=== PATIENT | female | born 1960 | race Caucasian/White ===

== ENCOUNTER 2016-04-03 09:06 | Emergency (ER) | payer BC, OTHER ==
[~2016-04-03] VITALS: Ht 174 cm; Wt 76.5 kg
[~2016-04-03 09:06] MED LIST: ENAL20TA81 PO; LORA-392 PO; LORTA5 PO; METO100T PO
[2016-04-03 09:07] VITALS: BP 133/105; PULSE 79; RESP 16; TEMP 97.7; O2SAT 95
--- NOTE | 2016-04-03 09:25 | PD ---
HPI Chief Complaint: Cold / Flu Symptoms Time Seen by Provider: 09:16 Travel History International Travel<30 days: No Contact w/Intl Traveler<30days: No Traveled to known affect area: No History of Present Illness HPI 55-year-old female complains of persistent cough and right-sided chest wall pain. Patient states that she started having coughing congestion 2 weeks ago. Patient started having sharp pain right-sided chest past week. Patient states the pain is worse with movement and deep breathing. Patient denies any fever chills. Patient denies any nausea vomiting diarrhea. Patient states the cough is persistent and nonproductive. Patient is a smoker. On a scale of 1-10 the pain is an 8. PFSH Past Medical History Arthritis: Yes (CERVICAL) Asthma: No Heart Rhythm Problems: No Cardiovascular Problems: Yes (HTN) High Cholesterol: No Chest Pain: No Congestive Heart Failure: No COPD: No Cerebrovascular Accident: No Diminished Hearing: No GERD: No Genitourinary: No Headaches: No Hepatitis: No Hiatal Hernia: No Hypertension: Yes Kidney Stones: No Musculoskeletal: Yes Neurologic: No Reproductive: No Respiratory: Yes Migraines: No Myocardial Infarction: No Renal Failure: No Seizures: No Sleep Apnea: No Ulcer: No ?: Not Past Surgical History Abdominal Surgery: No Appendectomy: No Cardiac Surgery: No Cholecystectomy: No Ear Surgery: No Endocrine Surgery: No Eye Surgery: No Genitourinary Surgery: No Gynecologic Surgery: No Oral Surgery: No Thoracic Surgery: No Other Surgery: Yes (CERVICAL PLATE) Social History Alcohol Use: No (social) Tobacco Use: No (1 ppd) Substance Use: No Allergies-Medications (Allergen,Severity, Reaction): Coded Allergies: Penicillin (Verified Allergy, Unknown, UNKNOWN, 04/03/16) Reported Meds & Prescriptions Reported Meds & Active Scripts Active Reported Hydroxyzine Pamoate 50 Mg Cap 50 Mg PO BID Lorazepam 0.5 Mg Tab 0.5 Mg PO TID Metoprolol Tartrate 100 Mg Tab 100 Mg PO BID Review of Systems General / Constitutional: No: Fever Eyes: No: Visual changes HENT: No: Headaches Cardiovascular: Positive: Chest Pain or Discomfort Respiratory: Positive: Cough, No: Shortness of Breath Gastrointestinal: No: Abdominal Pain Genitourinary: No: Dysuria Musculoskeletal: No: Pain Skin: No Rash Neurologic: No: Weakness Psychiatric: No: Depression Endocrine: No: Polydipsia Hematologic/Lymphatic: No: Easy Bruising Physical Exam Narrative GENERAL: Well-nourished, well-developed patient. SKIN: Warm and dry. HEAD: Normocephalic. EYES: No scleral icterus. No injection or drainage. NECK: Supple, trachea midline. No JVD or lymphadenopathy. CARDIOVASCULAR: Regular rate and rhythm without murmurs, gallops, or rubs. RESPIRATORY: Breath sounds equal bilaterally. No accessory muscle use. GASTROINTESTINAL: Abdomen soft, non-tender, nondistended. MUSCULOSKELETAL: No cyanosis, or edema. BACK: Nontender without obvious deformity. No CVA tenderness. Neurologic exam normal. Data Data Last Documented VS Vital Signs Date Time Temp Pulse Resp B/P Pulse Ox O2 Delivery O2 Flow Rate FiO2 04/03/16 09:07 97.7 79 16 133/105 95 Orders Chest, Single Ap (04/03/16 09:21) [facility] Medical Decision Making Medical Screen Exam Complete: Yes Emergency Medical Condition: Yes Interpretation(s) Chest x-ray shows no acute consolidation. Differential Diagnosis Differential diagnosis including bronchitis, pneumonia, pleurisy, pneumothorax. Narrative Course 55-year-old female with persistent cough and right-sided chest wall pain. Diagnosis Primary Impression: Bronchitis Additional Impression: Chest wall pain Patient Instructions: General Instructions Additional Instructions: Take medications as directed. Follow-up with personal physician. Return if worse. [id number] cough medicine as needed. Med/Other Pt SpecificInfo: Prescription(s) given Scripts Methocarbamol (Robaxin)750 Mg [id number] Mg PO QID #40 TAB Prov:Rey Londono MD 04/03/16 Meloxicam (Mobic)15 Mg Tab15 Mg PO DAILY #20 TAB Prov:Rey Londono MD 04/03/16 Azithromycin (Zithromax Z-Wesly)250 Mg [id number] Mg PO DIRECTED #1 DSPK 500 MG (2 tabs) day 1, then 1 tab days 2-5. Prov:Rey Londono MD 04/03/16 Disposition: 01 DISCHARGE HOME Condition: Stable Rey Londono MD Apr 03, 2016 09:25
[2016-04-03] MEDS ORDERED: LORA-373 PO (09:26)
[2016-04-03] MEDS ORDERED: HYDR50CA PO (09:26)
[2016-04-03] MEDS ORDERED: METO100T PO (09:26)
[2016-04-03] MEDS ORDERED: ZITHTAB PO (09:44)
[2016-04-03] MEDS ORDERED: MOBI15TA PO (09:44)
[2016-04-03] MEDS ORDERED: ROBA750T PO (09:44)
--- NOTE | 2016-04-03 09:51 | RADHPO ---
EXAM DATE/TIME: 04/03/2016 09:27 [facility] COMPARISON: No previous studies available for comparison. INDICATIONS : Cough and chest pain. MEDICAL HISTORY : None. SURGICAL HISTORY : None. ENCOUNTER: Initial ACUITY: 1 week PAIN SCORE: 9/10 LOCATION: Bilateral chest FINDINGS: A single view of the chest demonstrates the lungs to be symmetrically aerated without evidence of mas s, infiltrate or effusion. The cardiomediastinal contours are unremarkable. Osseous structures are intact. CONCLUSION: No acute disease. Sonu Linda MD on April 03, 2016 at 9:49 Board Certified Radiologist. This report was verified electronically.
== END 2016-04-03 09:57 | disposition home or self-care (01) ==
LOC: PHED 09:06
DX: J40 Bronchitis, not specified as acute or chronic (principal); R07.89 Other chest pain; I10 Essential (primary) hypertension; Z72.0 Tobacco use; Z87.39 Personal history of other diseases of the musculoskeletal system and connective tissue; Z87.09 Personal history of other diseases of the respiratory system
CPT/HCPCS: 71010; 99283

== ENCOUNTER 2017-03-05 09:46 | Emergency (ER) | payer BC ==
[~2017-03-05] VITALS: Ht 172.7 cm; Wt 84.0 kg
[~2017-03-05 09:46] MED LIST changes: -ENAL20TA81 PO; +HYDR50CA PO; -LORA-392 PO; +LORA0.5T PO; -LORTA5 PO; +MOBI15TA PO; +ROBA750T PO; +ZITHTAB PO
[2017-03-05 09:57] VITALS: BP 112/74; PULSE 87; RESP 16; TEMP 97.5; O2SAT 95
[2017-03-05] MEDS ORDERED: METO100T PO (10:23)
[2017-03-05] MEDS ORDERED: HYDR25TA5 PO (10:23)
[2017-03-05] MEDS ORDERED: CITA20TA4 PO (10:23)
--- NOTE | 2017-03-05 10:28 | PD ---
HPI Chief Complaint: Fall Time Seen by Provider: 10:16 Travel History International Travel<30 days: No Contact w/Intl Traveler<30days: No Traveled to known affect area: No History of Present Illness HPI This 56-year-old female is complaining of pain in her right shoulder. She says that 8 days ago she slipped on a wet floor and landed. She hit the right shoulder. She also hit her head but her head is not bothering her. She's been having pain in the right shoulder up to the neck. The pain seems to be getting worse. She has taken some Aleve without any relief. She does have a history of surgery on her neck. She says she had 4 collapsed disks and has a plate in her neck. The pain she is having is mostly in the back of the shoulder and extends up to the neck. She has not noted weakness of the arm. PFSH Past Medical History Arthritis: Yes (CERVICAL) Asthma: No Anxiety: Yes Heart Rhythm Problems: No Cardiovascular Problems: Yes (HTN) High Cholesterol: No Chest Pain: No Congestive Heart Failure: No COPD: No Cerebrovascular Accident: No Diminished Hearing: No Gastrointestinal Disorders: No GERD: No Genitourinary: No Headaches: No Hepatitis: No Hiatal Hernia: No Hypertension: Yes Kidney Stones: No Musculoskeletal: Yes Neurologic: No Reproductive: No Respiratory: Yes Migraines: No Myocardial Infarction: No Renal Failure: No Seizures: No Sleep Apnea: No Ulcer: No Past Surgical History Abdominal Surgery: No Appendectomy: No Cardiac Surgery: No Cholecystectomy: No Ear Surgery: No Endocrine Surgery: No Eye Surgery: No Genitourinary Surgery: No Gynecologic Surgery: No Neurologic Surgery: No Oral Surgery: No Thoracic Surgery: No Other Surgery: Yes (CERVICAL PLATE) Social History Alcohol Use: Yes (6 beers daily) Tobacco Use: No (1 ppd) Substance Use: Yes ( states pt takes "pills" and has a problem ) Allergies-Medications (Allergen,Severity, Reaction): Coded Allergies: penicillin G (Unverified Allergy, Unknown, UNKNOWN, 03/05/17) Reported Meds & Prescriptions Reported Meds & Active Scripts Active Mobic (Meloxicam) 15 Mg Tab 15 Mg PO DAILY Reported Hydrochlorothiazide 25 Mg Tab 25 Mg PO DAILY Citalopram (Citalopram Hydrobromide) 20 Mg Tab 20 Mg PO DAILY Metoprolol Tartrate 100 Mg Tab 150 Mg PO DAILY Lorazepam 0.5 Mg Tab 0.5 Mg PO TID Review of Systems General / Constitutional: No: Fever, Chills Eyes: No: Diploplia, Blurred Vision HENT: No: Headaches Cardiovascular: No: Chest Pain or Discomfort, Palpitations Respiratory: No: Cough Gastrointestinal: No: Vomiting, Diarrhea Genitourinary: No: Urgency Musculoskeletal: Positive: Myalgias, Pain Neurologic: No: Weakness Physical Exam Narrative GENERAL: Well-developed female SKIN: Focused skin assessment warm/dry. HEAD: Atraumatic. Normocephalic. EYES: Pupils equal and round. No scleral icterus. No injection or drainage. ENT: No nasal bleeding or discharge. Mucous membranes pink and moist. NECK: Trachea midline. No JVD. MUSCULOSKELETAL: No obvious deformities. No clubbing. No cyanosis. No edema. There is tenderness over the proximal humerus and the posterior aspect of the shoulder. She has pain with movement of the shoulder. There is no deformity area and also somewhat tender at the base of the neck. She has good radial pulse. Sensation of the hands is equal. Chemical Economist strength is equal. NEUROLOGICAL: Awake and alert. No obvious cranial nerve deficits. Motor grossly within normal limits. Normal speech. PSYCHIATRIC: Appropriate mood and affect; insight and judgment normal. Data Data Last Documented VS Vital Signs Date Time Temp Pulse Resp B/P (MAP) Pulse Ox O2 Delivery O2 Flow Rate FiO2 03/05/17 10:05 Room Air 03/05/17 09:57 97.5 87 16 112/74 (87) [address] Cerv Spine W/O Contrast (03/05/17 10:24) Shoulder, Complete (>2vws) (03/05/17 10:24) Oxycodone-Acetamin 5-325 Mg (Percocet (03/05/17 10:30) MDM Medical Decision Making Medical Screen Exam Complete: Yes Emergency Medical Condition: Yes Medical Record Reviewed: Yes Differential Diagnosis Differential includes contusion of the shoulder, posttraumatic bursitis, radiculopathy Narrative Course CT of the neck shows degenerative changes and surgical changes but no evidence of radiculopathy. X-ray of the shoulder shows some degenerative changes but no fracture. Patient has been treating this at home with Hollie without any response. I recommend she continue the Aleve but I will add some Percocet as she has not been sleeping due to the pain Diagnosis Primary Impression: Contusion of right shoulder Qualified Codes: S40.011A - Contusion of right shoulder, initial encounter Scripts Oxycodone-Acetaminophen (Percocet) 7.5-325 mg Tab 1 TAB PO Q6H Y for PAIN, #20 TAB 0 Refills Prov: Enrique Romero MD 03/05/17 Disposition: 01 DISCHARGE HOME Condition: Stable Enrique Romero MD Mar 05, 2017 10:28
[2017-03-05] MEDS ORDERED: oxyCODONE/ACETAMINOPHEN 5 MG/325 MG TAB PO ONE (10:30)
--- NOTE | 2017-03-05 11:22 | RADRPT ---
EXAM DATE/TIME: 03/05/2017 10:38 [facility] COMPARISON: No previous studies available for comparison. INDICATIONS : Right shoulder pain post slip & fall. MEDICAL HISTORY : Hypertension. Arthritis. SURGICAL HISTORY : Fusion, cervical. ENCOUNTER: Initial ACUITY: 1 week PAIN SCORE: 10/10 LOCATION: Right shoulder FINDINGS: There is no evidence of acute fracture. Bony mineralization is normal. There is mild osteoarthritis i nvolving the acromioclavicular joint. The glenohumeral joint is intact. CONCLUSION: 1. There is no evidence of acute fracture. 1. Anthony Shell MD on March 05, 2017 at 11:19 Board Certified Radiologist. This report was verified electronically.
--- NOTE | 2017-03-05 11:27 | RADRPT ---
EXAM DATE/TIME: 03/05/2017 10:42 [facility] COMPARISON: No previous studies available for comparison. INDICATIONS : Fall. Right sided neck pain. RADIATION DOSE: 25.99 CTDIvol (mGy) MEDICAL HISTORY : Hypertension. SURGICAL HISTORY : Cervical plate. ENCOUNTER: Initial ACUITY: 1 week PAIN SCALE: 5/10 LOCATION: Right neck TECHNIQUE: Volumetric scanning of the cervical spine was performed. Multiplanar reconstructions in the sagittal, coronal and oblique axial planes were performed. Using automated exposure control and adjustment o f the mA and/or kV according to patient size, radiation dose was kept as low as reasonably achievable to obtain optimal diagnostic quality images. DICOM format image data is available electronically f or review and comparison. FINDINGS: VERTEBRAE: Normal vertebral body height. Status post fusion at C6-C7. ALIGNMENT: No evidence of subluxation. C2-C3: The bony spinal canal is normal in size. No evidence of disc bulge or herniation. The neural forami na are bilaterally patent. C3-C4: Mild facet disease on the right without encroachment C4-C5: The bony spinal canal is normal in size. No evidence of disc bulge or herniation. The neural forami na are bilaterally patent. C5-C6: Thgl-do-kaktmzuq uncinate ridging with mild spinal stenosis. Neural foramen are adequate. C6-C7: Fused with patent neural foramen and no spinal stenosis C7-T1: The bony spinal canal is normal in size. No evidence of disc bulge or herniation. The neural forami na are bilaterally patent. CONCLUSION: Degenerative changes above the fusion at C5-C6 mild spinal stenosis. This is only slightly worse on the right side. Vic Cisneros MD FACR on March 05, 2017 at 11:23 Board Certified Radiologist. This report was verified electronically.
[2017-03-05 11:35] VITALS: RESP 18
[2017-03-05] MEDS ORDERED: PERC7.5T13 PO (12:03)
[2017-03-05 12:15] VITALS: BP 101/74
== END 2017-03-05 12:25 | disposition home or self-care (01) ==
LOC: PHED 09:46
DX: S40.011A Contusion of right shoulder, initial encounter (principal); W01.0XXA Fall on same level from slipping, tripping and stumbling without subsequent striking against object, initial encounter
CPT/HCPCS: 72125; 73030; 99284

== ENCOUNTER 2017-07-14 20:08 | Inpatient (IN) | payer BC ==
[~2017-07-14] VITALS: Ht 175.3 cm; Wt 84.0 kg
[~2017-07-14 20:08] MED LIST changes: +CITA20TA4 PO; +HYDR25TA5 PO; -HYDR50CA PO; +PERC7.5T13 PO; -ROBA750T PO; -ZITHTAB PO
[2017-07-14 20:48] VITALS: BP 112/71; PULSE 110; RESP 18; TEMP 99.7
--- NOTE | 2017-07-14 22:55 | PD ---
HPI Chief Complaint: GI Complaint Time Seen by Provider: 22:45 Travel History International Travel<30 days: No Contact w/Intl Traveler<30days: No Traveled to known affect area: No History of Present Illness HPI 57-year-old female complains of pain in the left chest and upper abdomen. She reports a cough that started 4 days ago. It has been gradually worsening. Now she has difficulty breathing due to pain. Any coughing causes increasing pain in the left chest and abdomen as well. The patient smokes about 10 cigarettes per day. She reports additionally hematuria today for the very first time. She follows with Dr. Gonzales. [facility] Past Medical History Arthritis: Yes (CERVICAL) Asthma: No Anxiety: Yes Heart Rhythm Problems: No Cardiovascular Problems: Yes (HTN) High Cholesterol: No Chest Pain: No Congestive Heart Failure: No COPD: No Cerebrovascular Accident: No Diminished Hearing: No Gastrointestinal Disorders: No GERD: No Genitourinary: No Headaches: No Hepatitis: No Hiatal Hernia: No Hypertension: Yes Kidney Stones: No Musculoskeletal: Yes Neurologic: No Reproductive: No Respiratory: Yes (pneumonia) Migraines: No Myocardial Infarction: No Renal Failure: No Seizures: No Sleep Apnea: No Ulcer: No ?: Not Past Surgical History Abdominal Surgery: No Appendectomy: No Cardiac Surgery: No Cholecystectomy: No Ear Surgery: No Endocrine Surgery: No Eye Surgery: No Genitourinary Surgery: No Gynecologic Surgery: No Neurologic Surgery: No Oral Surgery: No Thoracic Surgery: No Other Surgery: Yes (CERVICAL PLATE) Social History Alcohol Use: Yes (occ) Tobacco Use: Yes (1/2 ppd) Substance Use: Yes ( states pt takes "pills" and has a problem ) Allergies-Medications (Allergen,Severity, Reaction): Coded Allergies: penicillin G (Unverified Allergy, Unknown, UNKNOWN, 07/14/17) Reported Meds & Prescriptions Reported Meds & Active Scripts Active Reported Diazepam 10 Mg Tab 10 Mg PO HS PRN Gabapentin 300 Mg Cap 300 Mg PO BID Seroquel (Quetiapine Fumarate) 50 Mg Tab 50 Mg PO DAILY Doxepin (Doxepin HCl) 100 Mg Cap 100 Mg PO HS Hydrochlorothiazide 25 Mg Tab 25 Mg PO DAILY Citalopram (Citalopram Hydrobromide) 20 Mg Tab 20 Mg PO DAILY Metoprolol Tartrate 100 Mg Tab 150 Mg PO DAILY Lorazepam 0.5 Mg Tab 0.5 Mg PO TID Review of Systems Except as stated in HPI: all other systems reviewed are Neg General / Constitutional: No: Fever Physical Exam Narrative GENERAL: Pleasant 57-year-old female mild distress secondary to pain and/or distress Vital Signs Date Time Temp Pulse Resp B/P (MAP) Pulse Ox O2 Delivery O2 Flow Rate FiO2 07/14/17 20:48 99.7 110 18 112/71 (85) SKIN: Warm and dry. HEAD: Atraumatic. Normocephalic. EYES: Pupils equal and round. No scleral icterus. No injection or drainage. ENT: No nasal bleeding or discharge. Mucous membranes pink and moist. NECK: Trachea midline. No JVD. CARDIOVASCULAR: Tachycardia. Regular rhythm. RESPIRATORY: Minimal tachypnea is present. The breathing is somewhat shallow. GASTROINTESTINAL: Abdomen soft, non-tender, nondistended. Hepatic and splenic margins not palpable. MUSCULOSKELETAL: Extremities without clubbing, cyanosis, or edema. No obvious deformities. NEUROLOGICAL: Awake and alert. No obvious cranial nerve deficits. Motor grossly within normal limits. Five out of 5 muscle strength in the arms and legs. Normal speech. PSYCHIATRIC: Appropriate mood and affect; insight and judgment normal. Data Data Last Documented VS Vital Signs Date Time Temp Pulse Resp B/P (MAP) Pulse Ox O2 Delivery O2 Flow Rate FiO2 07/15/17 00:45 115 16 141/79 (99) 94 Nasal Cannula 4.00 07/14/17 20:48 99.7 Orders Orders Comprehensive Metabolic Panel (07/14/17 22:51) B-Type Natriuretic Peptide (07/14/17 22:51) D-Dimer (07/14/17 22:51) Act Partial Throm Time (Ptt) (07/14/17 22:51) Prothrombin Time / Inr (Pt) (07/14/17 22:51) Ckmb (Isoenzyme) Profile (07/14/17 22:51) Troponin I (07/14/17 22:51) Urinalysis - C+S If Indicated (07/14/17 22:51) Influenzae A/B Antigen (07/14/17 22:51) Blood Culture (07/14/17 22:51) Iv Access Insert/Monitor (07/14/17 22:51) Electrocardiogram (07/14/17 22:51) Ecg Monitoring (07/14/17 22:51) Oximetry (07/14/17 22:51) Oxygen Administration (07/14/17 22:51) Chest, Single Ap (07/14/17 22:51) Sodium Chloride 0.9% Flush (Ns Flush) (07/14/17 23:00) Albuterol Neb (Albuterol Neb) (07/14/17 23:00) Morphine Inj (Morphine Inj) (07/14/17 23:00) Complete Blood Count With Diff (07/14/17 22:51) Ceftriaxone Inj (Rocephin Inj) (07/14/17 23:45) Azithromycin Inj (Zithromax Inj) (07/14/17 23:45) CKMB (07/14/17 23:23) CKMB% (07/14/17 23:23) Sodium Chlor 0.9% 1000 Ml Inj (Ns 1000 M (07/15/17 00:30) Sodium Chlor 0.9% 1000 Ml Inj (Ns 1000 M (07/15/17 00:30) Ct Pulmonary Angiogram (07/15/17 00:24) Levofloxacin 750 Mg Premix Inj (Levaquin (07/15/17 23:00) Albuterol-Ipratropium Neb (Duoneb Neb) (07/15/17 01:00) Admit To Inpatient (07/15/17 ) Vital Signs (Adult) Q4H (07/15/17 00:56) Activity Oob With Assistance (07/15/17 00:56) Subway Repair Supervisor / Telemetry .CONTINUOUS (07/15/17 00:56) Intake + Output SHIRELNE.QSHIFT (07/15/17 00:56) Sodium Chlor 0.9% 1000 Ml Inj (Ns 1000 M (07/15/17 00:56) Sodium Chloride 0.9% Flush (Ns Flush) (07/15/17 01:00) Sodium Chloride 0.9% Flush (Ns Flush) (07/15/17 09:00) Ondansetron Inj (Zofran Inj) (07/15/17 01:00) Comprehensive Metabolic Panel (07/16/17 06:00) Complete Blood Count With Diff (07/16/17 06:00) Creatine Kinase (Cpk) (07/15/17 06:00) Creatine Kinase (Cpk) (07/15/17 12:00) Scd Bilateral/Knee High SHIRLENE.BID (07/15/17 00:56) Isidro Bilateral/Knee High SHIRLENE.QSHIFT (07/15/17 00:59) Acetaminophen (Tylenol) (07/15/17 01:00) Acetamin-Hydrocod 325-5 Mg (Marshall 5-325 (07/15/17 01:00) Morphine Inj (Morphine Inj) (07/15/17 01:00) Docusate Sodium-Senna (Nadine-Colace) (07/15/17 09:00) Magnesium Hydroxide Liq (Milk Of Magnesi (07/15/17 01:00) Sennosides (Senokot) (07/15/17 01:00) Bisacodyl Supp (Dulcolax Supp) (07/15/17 01:00) Lactulose Liq (Lactulose Liq) (07/15/17 01:00) Inpatient Certification (07/15/17 ) Citalopram (Celexa) (07/15/17 09:00) Quetiapine (Seroquel) (07/15/17 09:00) Admit Order (Ed Use Only) (07/15/17 ) Subway Repair Supervisor / Telemetry SHIRLENE.Q8H (07/15/17 01:01) Vital Signs (Adult) Q4H (07/15/17 01:01) Diet Heart Healthy (07/15/17 Breakfast) Activity Bed Rest (07/15/17 01:01) Diazepam (Valium) (07/15/17 01:30) Labs Laboratory Tests Test 07/14/17 23:23 White Blood Count 15.6 TH/MM3 Red Blood Count 3.56 MIL/MM3 Hemoglobin 11.2 GM/DL Hematocrit 33.3 % Mean Corpuscular Volume 93.4 FL Mean Corpuscular Hemoglobin 31.5 PG Mean Corpuscular Hemoglobin Concent 33.7 % Red Cell Distribution Width 13.0 % Platelet Count 205 TH/MM3 Mean Platelet Volume 6.9 FL Neutrophils (%) (Auto) 82.4 % Lymphocytes (%) (Auto) 7.8 % Monocytes (%) (Auto) 9.6 % Eosinophils (%) (Auto) 0.1 % Basophils (%) (Auto) 0.1 % Neutrophils # (Auto) 12.9 TH/MM3 Lymphocytes # (Auto) 1.2 TH/MM3 Monocytes # (Auto) 1.5 TH/MM3 Eosinophils # (Auto) 0.0 TH/MM3 Basophils # (Auto) 0.0 TH/MM3 CBC Comment AUTO DIFF Differential Total Cells Counted 100 Neutrophils % (Manual) 67 % Band Neutrophils % 14 % Lymphocytes % 11 % Monocytes % 8 % Neutrophils # (Manual) 12.6 TH/MM3 Differential Comment FINAL DIFF MANUAL Platelet Estimate NORMAL Platelet Morphology Comment NORMAL Red Cell Morphology Comment NORMAL Prothrombin Time 9.6 SEC Prothromb Time International Ratio 0.9 RATIO Activated Partial Thromboplast Time 35.6 SEC D-Dimer Quantitative (PE/DVT) 8.25 MG/L FEU Urine Collection Type CLEAN CATCH Urine Color ORANGE Urine Turbidity SL CLOUDY Urine pH 5.5 Urine Specific Corea GREATER/EQUAL 1.030 Urine Protein 300 OR GREATER mg/dL Urine Glucose (UA) 100 mg/dL Urine Ketones TRACE mg/dL Urine Occult Blood LARGE Urine Nitrite POS Urine Bilirubin NEG Urine Urobilinogen 4.0 MG/DL Urine Leukocyte Esterase NEG Urine RBC 4-9 /hpf Urine WBC 3-5 /hpf Urine Squamous Epithelial Cells > 8 /hpf Urine Amorphous Sediment MOD Urine Bacteria FEW /hpf Urine Hyaline Casts 6-9 /lpf Urine Mucus MOD /lpf Urine Yeast (Budding) FEW Microscopic Urinalysis Comment CULT NOT INDICATED Blood Urea Nitrogen 13 MG/DL Creatinine 0.76 MG/DL Random Glucose 114 MG/DL Total Protein 7.8 GM/DL Albumin 2.9 GM/DL Calcium Level 9.0 MG/DL Alkaline Phosphatase 102 U/L Aspartate Amino Transf (AST/SGOT) 55 U/L Alanine Aminotransferase (ALT/SGPT) 35 U/L Total Bilirubin 0.7 MG/DL Sodium Level 134 MEQ/L Potassium Level 3.9 MEQ/L Chloride Level 97 MEQ/L Carbon Dioxide Level 29.1 MEQ/L Anion Gap 8 MEQ/L Estimat Glomerular Filtration Rate 78 ML/MIN Total Creatine Kinase 1937 U/L Creatine Kinase MB 2.3 NG/ML Creatine Kinase MB % 0.1 % Troponin I LESS THAN 0.02 NG/ML B-Type Natriuretic Peptide 42 PG/ML MDM Medical Decision Making Medical Screen Exam Complete: Yes Emergency Medical Condition: Yes Medical Record Reviewed: Yes Differential Diagnosis NSTEMI, unstable angina, coronary vasospasm, PE, PTX, aortic dissection, pericarditis, myocarditis, endocarditis, PNA, esophageal disease, aneurysm, musculoskeletal etiologies, anxiety, cocaine/sympathomimetic abuse Narrative Course CBC & BMP Diagram 07/14/17 23:23 Total Protein 7.8, Albumin 2.9 L, Calcium Level 9.0, Alkaline Phosphatase 102, Aspartate Amino Transf (AST/SGOT) 55 H, Alanine Aminotransferase (ALT/SGPT) 35, Total Bilirubin 0.7 Total creatine kinase 1,937 Tn < 0.02 BNP 42 Band neutrophils% 14 [place] Ayala started HR 110, O2 sat 98% on 2LNC at 1252am admission to med/surg floor with telemetry for sepsis d/w Dr Gleason for [facility] Critical Care Narrative Aggregate critical car time 35 minutes included in the critical care time. My time did not include minutes spent treating any other patients simultaneously or on activities that did not directly contribute to the patient's treatment. The services I provided to this patient were to treat and/or prevent clinically significant deterioration that could result in: Septic shock I provided critical care services requiring my management, as noted below: Chart data review, documentation time, medication orders and management, vital sign assessments/reviewing monitor data, ordering and reviewing lab tests, ordering and interpreting/reviewing x-rays and diagnostic studies, care of the patient and discussion of the patient with the admitting physicians. Diagnosis Primary Impression: PNA (pneumonia) Qualified Codes: J18.9 - Pneumonia, unspecified organism Additional Impressions: Sepsis Qualified Codes: A41.9 - Sepsis, unspecified organism UTI (urinary tract infection) Qualified Codes: N39.0 - Urinary tract infection, site not specified; R31.9 - Hematuria, unspecified Admitting Information Admitting Physician Requests: Admit Edi Alexander MD Jul 14, 2017 22:55
[2017-07-14] MEDS ORDERED: RESP: ALBUTEROL 2.5 MG/3 ML NEB (SCH) INH ONE (23:00)
[2017-07-14] MEDS ORDERED: MORPHINE SULFATE 8 MG/ML INJ IV PUSH ONE (23:00)
[2017-07-14] MEDS ORDERED: SODIUM CHLORIDE 0.9% FLUSH 10 ML FLUSH IVF PRN (23:00)
[2017-07-14] MEDS ORDERED: SERO50TA PO (23:12)
[2017-07-14] MEDS ORDERED: GABA300C5 PO (23:12)
[2017-07-14] MEDS ORDERED: DOXE100C4 PO (23:12)
[2017-07-14] MEDS ORDERED: DIAZ10TA PO (23:12)
--- NOTE | 2017-07-14 23:19 | RADRPT ---
EXAM DATE/TIME: 07/14/2017 23:03 [facility] COMPARISON: CHEST SINGLE AP, April 03, 2016, 9:27. INDICATIONS : Patient states pain all over for several days. MEDICAL HISTORY : Hypertension. SURGICAL HISTORY : Fusion, cervical. ENCOUNTER: Initial ACUITY: 3 days PAIN SCORE: 8/10 LOCATION: Bilateral upper chest FINDINGS: Patchy infiltrates seen in both bases and also in the right upper lobe. No pleural effusion seen. No pneumothorax. Heart size stable, within normal limits. CONCLUSION: Patchy bilateral pneumonia as above. Sonu Diaz MD on July 14, 2017 at 23:17 Board Certified Radiologist. This report was verified electronically.
[2017-07-14 23:21] VITALS: BP 113/72; PULSE 109; RESP 20; O2SAT 98
[2017-07-14 23:37] LABS: AUTOMATED NEUTROPHIL # 12.9 TH/MM3 (1.8-7.7); BASOPHIL % 0.1 % (0.0-2.0); EOSINOPHIL % 0.1 % (0.0-4.0); HEMATOCRIT 33.3 % (35.0-46.0); HEMOGLOBIN 11.2 GM/DL (11.6-15.3); LYMPH % 7.8 % (9.0-44.0); LYMPHOCYTE # 1.2 TH/MM3 (1.0-4.8); MEAN CELL VOLUME 93.4 FL (80.0-100.0); MEAN CORPUSCULAR HEMOGLOBIN 31.5 PG (27.0-34.0); MEAN CORPUSCULAR HGB CONC 33.7 % (32.0-36.0); MEAN PLATELET VOLUME 6.9 FL (7.0-11.0); MONO % 9.6 % (0.0-8.0); MONOCYTE # 1.5 TH/MM3 (0-0.9); NEUT % 82.4 % (16.0-70.0); PLATELET COUNT 205 TH/MM3 (150-450); RED BLOOD COUNT 3.56 MIL/MM3 (4.00-5.30); WHITE BLOOD COUNT 15.6 TH/MM3 (4.0-11.0)
[2017-07-14 23:43] LABS: BLOOD, URINE LARGE (NEG); GLUCOSE,URINE 100 mg/dL (NEG); KETONE, URINE TRACE mg/dL (NEG); NITRITE,URINE POS (NEG); PH, URINE 5.5 (5.0-8.5); URINE LEUKOCYTE ESTERASE NEG (NEG)
[2017-07-14] MEDS ORDERED: cefTRIAXone INJ 1,000 MG in SODIUM CHLORIDE 0.9% INJ 100 ML IV ONE (23:45)
[2017-07-14] MEDS ORDERED: AZITHROMYCIN INJ 500 MG in SODIUM CHLOR 0.9% 250 ML INJ 250 ML IV ONE (23:45)
[2017-07-14 23:47] LABS: CHLORIDE 97 MEQ/L (98-107); SODIUM (NA) 134 MEQ/L (136-145)
[2017-07-14 23:48] LABS: BILIRUBIN, URINE NEG (NEG); URINE COLOR ORANGE (YELLW/STRAW)
[2017-07-14 23:49] LABS: MUCUS URINE MOD /lpf (OCC)
[2017-07-14 23:50] LABS: ALBUMIN 2.9 GM/DL (3.4-5.0); BICARBONATE 29.1 MEQ/L (21.0-32.0); BLOOD UREA NITROGEN 13 MG/DL (7-18); GLUCOSE,RANDOM 114 MG/DL (74-106); SQUAMOUS EPITHELIAL CELL URINE > 8 /hpf (0-5)
[2017-07-14 23:51] LABS: AMORPHOUS SEDIMENT, URINE MOD; BACTERIA, URINE FEW /hpf
[2017-07-14 23:53] LABS: ALT (GPT) 35 U/L (10-53)
[2017-07-14 23:54] LABS: AST (GOT) 55 U/L (15-37); CREATININE 0.76 MG/DL (0.50-1.00); GLOMERULAR FILTRATION RATE 78 ML/MIN (>89)
[2017-07-14 23:55] LABS: TOTAL BILIRUBIN ADULT 0.7 MG/DL (0.2-1.0); TOTAL PROTEIN 7.8 GM/DL (6.4-8.2)
[2017-07-14 23:56] LABS: ALKALINE PHOSPHATASE 102 U/L (45-117)
[2017-07-14 23:58] LABS: TROPONIN I LESS THAN 0.02 NG/ML (0.02-0.05)
[2017-07-15] VITALS (21 sets, daily range): BP systolic 86–141; BP diastolic 60–83; PULSE 68–116; RESP 14–27; TEMP 96.6–98.3; O2SAT 87–100
[2017-07-15 00:06] LABS: BANDS 14 % (0-6); LYMPHOCYTES 11 % (9-44); MONOCYTES 8 % (0-8); NEUTROPHIL # MANUAL DIFF 12.6 TH/MM3 (1.8-7.7); POLYS (SEG NEUTROPHILS) 67 % (16-70)
[2017-07-15] MEDS ORDERED: SODIUM CHLOR 0.9% 1000 ML INJ 1,000 ML IV ONE ×2 (00:30)
--- NOTE | 2017-07-15 00:51 | RADRPT ---
EXAM DATE/TIME: 07/15/2017 00:17 [facility] COMPARISON: CHEST SINGLE AP, July 14, 2017, 23:03. INDICATIONS : Left chest pain. IV CONTRAST: 75 cc Omnipaque 350 (iohexol) IV RADIATION DOSE: 16.52 CTDIvol (mGy) MEDICAL HISTORY : Hypertension. SURGICAL HISTORY : None. ENCOUNTER: Initial ACUITY: 4 - 6 days PAIN SCALE: 9/10 LOCATION: Left chest TECHNIQUE: Volumetric scanning of the chest was performed using a pulmonary embolism protocol MIP images were re constructed. Using automated exposure control and adjustment of the mA and/or kV according to patien t size, radiation dose was kept as low as reasonably achievable to obtain optimal diagnostic quality images. DICOM format image data is available electronically for review and comparison. Follow-up recommendations for detected pulmonary nodules are based at a minimum on nodule size and pa tient risk factors according to Fleischner Society Guidelines. FINDINGS: There is no pulmonary embolus. There is bilateral pneumonia, on the left involving the mid-upper lobe and the base of the lower lobe . Pneumonia on the right is mostly in the upper lobe and to a lesser extent medial segment of the rig ht middle lobe. There is a tiny left pleural effusion. Normal heart size. There are scattered mediastinal lymph nodes that measure up to 11 mm in greatest s hort axis dimension, nonspecific but presumably reactive. Liver appears fatty infiltrated. CONCLUSION: 1. No pulmonary embolus. 2. Bilateral pneumonia and tiny left pleural effusion. 3. Upper limits of normal mediastinal lymph nodes. Sonu Diaz MD on July 15, 2017 at 0:46 Board Certified Radiologist. This report was verified electronically.
[2017-07-15] MEDS ORDERED: SENNOSIDES 8.6 MG TAB PO PRN (01:00)
[2017-07-15] MEDS ORDERED: ACETAMINOPHEN 325 MG TAB PO PRN (01:00)
[2017-07-15] MEDS ORDERED: ONDANSETRON HCL 4 MG/2 ML VIAL IVP PRN (01:00)
[2017-07-15] MEDS ORDERED: BISACODYL 10 MG SUPP RECTAL PRN (01:00)
[2017-07-15] MEDS ORDERED: LACTULOSE SYRUP 20 GM/30 ML CUP PO PRN (01:00)
[2017-07-15] MEDS ORDERED: MAGNESIUM HYDROXIDE SUSP 30 ML CUP PO PRN (01:00)
[2017-07-15 01:05] LABS: INTERNATIONAL NORMALIZED RATIO 0.9 RATIO; PROTHROMBIN TIME - PATIENT 9.6 SEC (9.8-11.6)
[2017-07-15 01:12] LABS: D-DIMER 8.25 MG/L FEU (0.00-0.50)
[2017-07-15] MEDS ORDERED: IOHEXOL 350 MG/ML 10 ML VIAL (for RAD DIAG) IVCONTRAST ONE (01:14)
[2017-07-15] MEDS: MORPHINE SULFATE 2 MG/ML SYRINGE IV PUSH PRN ×2 (02:47→06:00)
[2017-07-15] MEDS: SODIUM CHLOR 0.9% 1000 ML INJ 1,000 ML IV SCH ×4 (03:17→21:50)
[2017-07-15] MEDS: SODIUM CHLORIDE 0.9% FLUSH 10 ML FLUSH IV FLUSH SCH ×2 (08:02→20:48)
[2017-07-15] MEDS: CITALOPRAM HYDROBROMIDE 20 MG TAB PO SCH (08:03)
[2017-07-15] MEDS: DOCUSATE SODIUM 50 MG/SENNA 8.6 MG TAB PO SCH ×2 (08:03→20:48)
[2017-07-15] MEDS: ACETAMINOPHEN/HYDROcodone 325 MG/5 MG TAB PO PRN ×3 (08:04→22:04)
[2017-07-15] MEDS: QUEtiapine FUMARATE 25 MG TAB PO SCH (08:04)
--- NOTE | 2017-07-15 10:12 | EKG ---
Date Performed: 07/14/2017 Time Performed: 23:35:59 PTAGE: 57 years EKG: SINUS TACHYCARDIA POSSIBLE LEFT ATRIAL ENLARGEMENT NONSPECIFIC T-WAVE ABNORMALITY ABNORMAL RHYTHM ECG NO PREVIOUS TRACING DOCTOR: Anthony Stacy Interpretating Date/Time 07/15/2017 10:11:31
--- NOTE | 2017-07-15 10:40 | HHI.HP ---
HPI Service [facility] Primary Care Physician Pricilla Gonzales MD Admission Diagnosis PNA; Sepsis; UTI Diagnoses: Chief Complaint: Headache Travel History International Travel<30 Days: No Contact w/Intl Traveler <30 Da: No Traveled to Known Affected Are: No Sepsis Criteria SIRS Criteria (2 or more): Heart rate over 90, WBC > 79239, < 4000 or > 10% bands Sepsis Criteria (SIRS+source): Infect source susp/known History of Present Illness This patient is a 57-year-old female with a history of tobacco dependency without a history of chronic obstructive disease per her report and who comes in with increased headache and shortness of breath for the last several days. She reports she was recently in a hospital however no reports are verified. She has had difficulty breathing and productive cough and does came to the hospital for further evaluation. In the emergency room she was tachycardic and had elevated white cell count. X-ray on my review does show patchy infiltrates bilaterally and a CT of the chest is consistent with bilateral pneumonia. Patient been admitted to the hospital for acute bilateral pneumonia with evidence of respiratory failure. She has been hypoxemic without home oxygen reported. She has been on 3-4 L here. She has some improvement nebulizers and antibiotics. She feels a tightness in her chest is improved and her headache is improved as well. Patient been admitted to the hospital for further evaluation and treatment of the above problems. Review of Systems Constitutional: COMPLAINS OF: Fever, Chills, DENIES: Diaphoretic episodes, Fatigue, Weight gain, Weight loss, Dizziness, Change in appetite, Night Sweats Endocrine: DENIES: Abnorml menstrual pattern, Heat/cold intolerance, Polydipsia , Polyuria, Polyphagia Eyes: DENIES: Blurred vision, Diplopia, Eye inflammation, Eye pain, Vision loss , Photosensitivity, Double Vision Ears, nose, mouth, throat: DENIES: Tinnitus, Hearing loss, Vertigo, Nasal discharge, Oral lesions, Throat pain, Hoarseness, Ear Pain, Running Nose, Epistaxis, Sinus Pain, Toothache, Odynophagia Respiratory: COMPLAINS OF: Cough, Sputum production, Shortness of breath, DENIES: Apneas, Snoring, Wheezing, Hemoptysis Cardiovascular: DENIES: Chest pain, Palpitations, Syncope, Dyspnea on Exertion , PND, Lower Extremity Edema, Orthopnea, Claudication Gastrointestinal: DENIES: Abdominal pain, Black stools, Bloody stools, Constipation, Diarrhea, Nausea, Vomiting, Difficulty Swallowing, Anorexia Genitourinary: DENIES: Abnormal vaginal bleeding, Dysmenorrhea, Dyspareunia, Sexual dysfunction, Urinary frequency, Urinary incontinence, Urgency, Hematuria , Dysuria, Nocturia, Vaginal discharge Musculoskeletal: DENIES: Joint pain, Muscle aches, Stiffness, Joint Swelling, Back pain, Neck pain Integumentary: DENIES: Abnormal pigmentation, Pruritus, Rash, Nail changes, Breast masses, Breast skin changes, Nipple discharge Hematologic/lymphatic: DENIES: Bruising, Lymphadenopathy Immunologic/allergic: DENIES: Eczema, Urticaria Neurologic: COMPLAINS OF: Headache, DENIES: Abnormal gait, Localized weakness, Paresthesias, Seizures, Speech Problems, Tremor, Poor Balance Psychiatric: COMPLAINS OF: Anxiety, Depression, DENIES: Confusion, Mood changes , Hallucinations, Agitation, Suicidal Ideation, Homicidal Ideation, Delusions Except as stated in HPI: all other systems reviewed are Neg Past Family Social History Past Medical History Hypertension Anxiety/depression Past Surgical History Cervical neck surgery Reported Medications Reviewed in the EMR, patient's med list appears different from the one listed in the medical record Patient denies taking metoprolol or hydrochlorothiazide and denies taking Lorazepam or diazepam Allergies: Coded Allergies: penicillin G (Unverified Allergy, Unknown, UNKNOWN, 07/14/17) Active Ordered Medications Reviewed in the EMR Family History Mother and father from old age in their 80s, mother also had a heart attack Social History Patient smokes half a pack a day for several decades, alcohol occasionally, lives with her Physical Exam Vital Signs Vital Signs Date Time Temp Pulse Resp B/P (MAP) Pulse Ox O2 Delivery O2 Flow Rate FiO2 07/15/17 08:00 98.3 116 14 102/60 (74) 90 07/15/17 04:00 98.1 68 17 117/83 (94) 96 07/15/17 03:09 98.0 90 17 118/80 (93) 94 07/15/17 01:39 115 18 115/78 (90) 96 Nasal Cannula 4.00 07/15/17 00:45 115 16 141/79 (99) 94 Nasal Cannula 4.00 07/14/17 23:44 17 07/14/17 23:21 109 20 113/72 (86) 98 Nasal Cannula 4.00 07/14/17 23:13 Nasal Cannula 4.00 07/14/17 23:13 Nasal Cannula 4.00 07/14/17 20:48 99.7 110 18 112/71 (85) Physical Exam GENERAL: This is a well-nourished, sleepy but able to answer questions although appears somewhat confused SKIN: No rashes, ecchymoses or lesions. Cool and dry. HEAD: Atraumatic. Normocephalic. No temporal or scalp tenderness. EYES: Pupils equal round and reactive. Extraocular motions intact. No scleral icterus. No injection or drainage. ENT: Nose without bleeding, purulent drainage or septal hematoma. Throat without erythema, tonsillar hypertrophy or exudate. Uvula midline. Airway patent. NECK: Trachea midline. No JVD or lymphadenopathy. Supple, nontender, no meningeal signs. CARDIOVASCULAR: Regular rate and rhythm without murmurs, gallops, or rubs. RESPIRATORY: Decreased air sounds bilaterally without wheezes appreciated GASTROINTESTINAL: Abdomen soft, non-tender, nondistended. No hepato-splenomegaly , or palpable masses. No guarding. MUSCULOSKELETAL: Extremities without clubbing, cyanosis, or edema. No joint tenderness, effusion, or edema noted. No calf tenderness. Negative Homans sign bilaterally. NEUROLOGICAL: Awake and alert. Cranial nerves II through XII intact. Motor and sensory grossly within normal limits. Five out of 5 muscle strength in all muscle groups. Normal speech. Laboratory Laboratory Tests Test 07/14/17 23:23 07/15/17 05:30 White Blood Count 15.6 Red Blood Count 3.56 Hemoglobin 11.2 Hematocrit 33.3 Mean Corpuscular Volume 93.4 Mean Corpuscular Hemoglobin 31.5 Mean Corpuscular Hemoglobin Concent 33.7 Red Cell Distribution Width 13.0 Platelet Count 205 Mean Platelet Volume 6.9 Neutrophils (%) (Auto) 82.4 Lymphocytes (%) (Auto) 7.8 Monocytes (%) (Auto) 9.6 Eosinophils (%) (Auto) 0.1 Basophils (%) (Auto) 0.1 Neutrophils # (Auto) 12.9 Lymphocytes # (Auto) 1.2 Monocytes # (Auto) 1.5 Eosinophils # (Auto) 0.0 Basophils # (Auto) 0.0 CBC Comment AUTO DIFF Differential Total Cells Counted 100 Neutrophils % (Manual) 67 Band Neutrophils % 14 Lymphocytes % 11 Monocytes % 8 Neutrophils # (Manual) 12.6 Differential Comment FINAL DIFF MANUAL Platelet Estimate NORMAL Platelet Morphology Comment NORMAL Red Cell Morphology Comment NORMAL Prothrombin Time 9.6 Prothromb Time International Ratio 0.9 Activated Partial Thromboplast Time 35.6 D-Dimer Quantitative (PE/DVT) 8.25 Urine Collection Type CLEAN CATCH Urine Color ORANGE Urine Turbidity SL CLOUDY Urine pH 5.5 Urine Specific [place] GREATER/EQUAL 1.030 Urine Protein 300 OR GREATER Urine Glucose (UA) 100 Urine Ketones TRACE Urine Occult Blood LARGE Urine Nitrite POS Urine Bilirubin NEG Urine Urobilinogen 4.0 Urine Leukocyte Esterase NEG Urine RBC 4-9 Urine WBC 3-5 Urine Squamous Epithelial Cells > 8 Urine Amorphous Sediment MOD Urine Bacteria FEW Urine Hyaline Casts 6-9 Urine Mucus MOD Urine Yeast (Budding) FEW Microscopic Urinalysis Comment CULT NOT INDICATED Blood Urea Nitrogen 13 Creatinine 0.76 Random Glucose 114 Total Protein 7.8 Albumin 2.9 Calcium Level 9.0 Alkaline Phosphatase 102 Aspartate Amino Transf (AST/SGOT) 55 Alanine Aminotransferase (ALT/SGPT) 35 Total Bilirubin 0.7 Sodium Level 134 Potassium Level 3.9 Chloride Level 97 Carbon Dioxide Level 29.1 Anion Gap 8 Estimat Glomerular Filtration Rate 78 Total Creatine Kinase 7 6 Creatine Kinase MB 2.3 3.6 Creatine Kinase MB % 0.1 0.2 Troponin I LESS THAN 0.02 B-Type Natriuretic Peptide 42 Date/Time Source Procedure Growth Status 07/14/17 23:23 Blood Peripheral Aerobic Blood Culture Pending Received 07/14/17 23:23 Blood Peripheral Anaerobic Blood Culture Pending Received 07/14/17 23:30 Nasal Aspirate Influenza Types A,B Antigen (SHANTA) - Final NEGATIVE FOR FLU A AND B ANTIGEN.... Complete Result Diagram: 07/14/17232207/14/17232[address] Angiography 07/15/17 0024 Signed Impressions: Service Date/Time: Saturday, July 15, 2017 00:17 - CONCLUSION: 1. No pulmonary embolus. 2. Bilateral pneumonia and tiny left pleural effusion. 3. Upper limits of normal mediastinal lymph nodes. Sonu Diaz MD Chest X-Ray 07/14/17 [id number] Signed Impressions: Service Date/Time: Friday, July 14, 2017 23:03 - CONCLUSION: Patchy bilateral pneumonia as above. Sonu Diaz MD Septic Shock Reassessment Septic shock perfusion: reassessment completed Caprini VTE Risk Assessment Caprini VTE Risk Assessment: Mod/High Risk (score >= 2) Caprini Risk Assessment Model Point Value = 1 Point Value = 2 Point Value = 3 Point Value = 5 Age 41-60 Minor surgery BMI > 25 kg/m2 Swollen legs Varicose veins or History of unexplained or recurrent spontaneous Oral contraceptives or hormone replacement Sepsis (< 1 month) Serious lung disease, including pneumonia (< 1 month) Abnormal pulmonary function Acute myocardial infarction Congestive heart failure (< 1 month) History of inflammatory bowel disease Medical patient at bed rest Age 61-74 Arthroscopic surgery Major open surgery (> 45 min) Laparoscopic surgery (> 45 min) Malignancy Confined to bed (> 72 hours) Immobilizing plaster cast Central venous access Age >= 75 History of VTE Family history of VTE Factor V Leiden Prothrombin [id number] Lupus anticoagulant Anticardiolipin antibodies Elevated serum homocysteine Heparin-induced thrombocytopenia Other congenital or acquired thrombophilia Stroke (< 1 month) Elective arthroplasty Hip, pelvis, or leg fracture Acute spinal cord injury (< 1 month) Prophylaxis Regimen Total Risk Factor Score Risk Level Prophylaxis Regimen 0-1 Low Early ambulation 2 Moderate Order ONE of the following: *Sequential Compression Device (SCD) *Heparin 5000 units SQ BID 3-4 Higher Order ONE of the following medications: *Heparin 5000 units SQ TID *Enoxaparin/Lovenox 40 mg SQ daily (WT < 150 kg, CrCl > 30 mL/min) *Enoxaparin/Lovenox 30 mg SQ daily (WT < 150 kg, CrCl > 10-29 mL/min) *Enoxaparin/Lovenox 30 mg SQ BID (WT < 150 kg, CrCl > 30 mL/min) AND/OR *Sequential Compression Device (SCD) 5 or more Highest Order ONE of the following medications: *Heparin 5000 units SQ TID (Preferred with Epidurals) *Enoxaparin/Lovenox 40 mg SQ daily (WT < 150 kg, CrCl > 30 mL/min) *Enoxaparin/Lovenox 30 mg SQ daily (WT < 150 kg, CrCl > 10-29 mL/min) *Enoxaparin/Lovenox 30 mg SQ BID (WT < 150 kg, CrCl > 30 mL/min) AND *Sequential Compression Device (SCD) Assessment and Plan Problem List: (1) Encephalopathy ICD Code: G93.40 - Encephalopathy, unspecified Plan: Etiology unclear rule out metabolic versus toxic Workup in progress follow-up ammonia level, blood gas Avoid sedatives (2) PNA (pneumonia) ICD Code: J18.9 - Pneumonia, unspecified organism Status: Acute Plan: Continue with empiric Levaquin, follow-up micro Patient with acute sepsis (elevated heart rate, elevated white cell count Pneumonia) (3) Sepsis ICD Code: A41.9 - Sepsis, unspecified organism Status: Acute Plan: Likely due to pneumonia Elevated white cell count and hypoxemia and tachycardia (4) Rhabdomyolysis ICD Code: M62.82 - Rhabdomyolysis Plan: Continue with trending CPK levels, IV fluids and watch renal function (5) SOB (shortness of breath) ICD Code: R06.02 - Shortness of breath Plan: Continue with nebulizers as needed Follow-up blood gas Rule out chronic disease process Patient also with acute pneumonia will continue IV antibiotics we will add a short course of steroids wean off o2 as tolerated Physician Certification 2 Midnight Certification Type: Admission for Inpatient Services Order for Inpatient Services The services are ordered in accordance with Medicare regulations or non- Medicare payer requirements, as applicable. In the case of services not specified as inpatient-only, they are appropriately provided as inpatient services in accordance with the 2-midnight benchmark. Estimated LOS (days): 3 3 days is the estimated time the patient will need to remain in the hospital, assuming treatment plan goals are met and no additional complications. Post-Hospital Plan: Home Problem Qualifiers (1) PNA (pneumonia): Qualified Codes: J18.9 - Pneumonia, unspecified organism (2) Sepsis: Qualified Codes: A41.9 - Sepsis, unspecified organism Lisa Parker MD Jul 15, 2017 10:40
[2017-07-15] MEDS ORDERED: methylPREDNISolone SOD SUCC 125 MG/2 ML VIAL IV PUSH ONE (11:00)
[2017-07-15] MEDS: LEVOFLOXACIN 750 MG TAB PO SCH (11:53)
[2017-07-15] MEDS: NICOTINE 14 MG/24 HR PATCH T-DERMAL SCH (11:54)
[2017-07-15] MEDS ORDERED: QUET-86 PO (14:54)
[2017-07-15] MEDS ORDERED: HYDR-3133 PO (14:54)
[2017-07-15] MEDS ORDERED: HYDR1CAP30 PO (14:56)
[2017-07-15] MEDS ORDERED: LORazepam 1 MG TAB PO PRN (15:15)
[2017-07-15] MEDS ORDERED: LORazepam 2 MG/ML VIAL IV PUSH PRN ×4 (15:15)
[2017-07-15] MEDS ORDERED: LORazepam 2 MG TAB PO PRN (15:15)
[2017-07-15] MEDS ORDERED: FLUMAZENIL 0.5 MG/5 ML VIAL IV PUSH PRN (15:15)
[2017-07-15] MEDS: methylPREDNISolone SOD SUCC 40 MG/1 ML VIAL IV PUSH SCH ×2 (18:05→22:04)
[2017-07-15] MEDS: DIAZEPAM 5 MG TAB PO PRN (21:02)
[2017-07-15] MEDS ORDERED: LEVOFLOXACIN 750 MG PREMIX INJ 150 ML IV SCH (23:00)
[2017-07-16] VITALS (36 sets, daily range): BP systolic 84–141; BP diastolic 55–84; PULSE 60–80; RESP 10–34; TEMP 97.4–98.2; O2SAT 88–100
[2017-07-16] MEDS: SODIUM CHLOR 0.9% 1000 ML INJ 1,000 ML IV SCH ×3 (04:00→17:44)
[2017-07-16] MEDS: ACETAMINOPHEN/HYDROcodone 325 MG/5 MG TAB PO PRN ×4 (04:53→21:55)
[2017-07-16] MEDS: methylPREDNISolone SOD SUCC 40 MG/1 ML VIAL IV PUSH SCH ×4 (04:54→23:11)
[2017-07-16] MEDS: SODIUM CHLORIDE 0.9% FLUSH 10 ML FLUSH IV FLUSH PRN (04:54)
[2017-07-16 05:16] LABS: BASOPHIL % 0.1 % (0.0-2.0); EOSINOPHIL % 0.1 % (0.0-4.0); HEMOGLOBIN 10.1 GM/DL (11.6-15.3); LYMPH % 6.5 % (9.0-44.0); LYMPHOCYTE # 0.6 TH/MM3 (1.0-4.8); MEAN CELL VOLUME 94.5 FL (80.0-100.0); MEAN CORPUSCULAR HEMOGLOBIN 30.6 PG (27.0-34.0); MEAN CORPUSCULAR HGB CONC 32.4 % (32.0-36.0); MEAN PLATELET VOLUME 7.6 FL (7.0-11.0); MONO % 1.7 % (0.0-8.0); MONOCYTE # 0.2 TH/MM3 (0-0.9); NEUT % 91.6 % (16.0-70.0); PLATELET COUNT 187 TH/MM3 (150-450); RED BLOOD COUNT 3.28 MIL/MM3 (4.00-5.30); RED CELL DISTRIBUTION WIDTH 13.2 % (11.6-17.2); WHITE BLOOD COUNT 9.8 TH/MM3 (4.0-11.0)
[2017-07-16 06:22] LABS: ALBUMIN 2.2 GM/DL (3.4-5.0); ALKALINE PHOSPHATASE 103 U/L (45-117); ALT (GPT) 56 U/L (10-53); AST (GOT) 67 U/L (15-37); BLOOD UREA NITROGEN 14 MG/DL (7-18); CALCIUM 8.2 MG/DL (8.5-10.1); CHLORIDE 106 MEQ/L (98-107); CREATININE 0.45 MG/DL (0.50-1.00); GLOMERULAR FILTRATION RATE 143 ML/MIN (>89); GLUCOSE,RANDOM 132 MG/DL (74-106); SODIUM (NA) 141 MEQ/L (136-145); TOTAL BILIRUBIN ADULT 0.3 MG/DL (0.2-1.0); TOTAL PROTEIN 6.8 GM/DL (6.4-8.2)
[2017-07-16] MEDS: RESP: ALBUTEROL 2.5 MG/IPRATROPIUM 0.5 MG NEB (PRN) NEB ×4 (08:34→20:09)
[2017-07-16] MEDS: REMOVE OLD PATCH T-DERMAL SCH (09:00)
[2017-07-16] MEDS: LEVOFLOXACIN 750 MG TAB PO SCH (09:04)
[2017-07-16] MEDS: NICOTINE 14 MG/24 HR PATCH T-DERMAL SCH (09:04)
[2017-07-16] MEDS: SODIUM CHLORIDE 0.9% FLUSH 10 ML FLUSH IV FLUSH SCH ×2 (09:05→20:28)
[2017-07-16] MEDS: CITALOPRAM HYDROBROMIDE 20 MG TAB PO SCH (09:05)
[2017-07-16] MEDS: QUEtiapine FUMARATE 25 MG TAB PO SCH (09:05)
[2017-07-16] MEDS: DOCUSATE SODIUM 50 MG/SENNA 8.6 MG TAB PO SCH ×2 (09:05→20:28)
[2017-07-16] MEDS: guaiFENesin E.R. 600 MG TAB PO SCH ×2 (11:46→20:28)
--- NOTE | 2017-07-16 13:17 | HHI.PR ---
Subjective Remarks Patient seen and evaluated today in follow-up for metabolic encephalopathy and for respiratory failure which is hypercapnic and also due to pneumonia and hypoxemia. Patient's improved greatly on high flow nasal cannula which we will wean as tolerated. She has quite a bit of congestion and is requesting something to help her cough up her phlegm. Objective Vitals Vital Signs Date Time Temp Pulse Resp B/P (MAP) Pulse Ox O2 Delivery O2 Flow Rate FiO2 07/16/17 11:00 72 21 99/67 (78) 94 07/16/17 10:23 76 34 100/69 (79) 92 07/16/17 10:00 78 07/16/17 10:00 74 14 84/55 (65) 88 07/16/17 09:00 76 11 99/66 (77) 95 07/16/17 08:35 93 High Flow Nasal Cannula 30.00 35 07/16/17 08:00 70 18 91/69 (76) 92 07/16/17 08:00 70 07/16/17 07:00 97 Nasal Cannula 30.00 35 07/16/17 07:00 98.2 70 18 91/69 (76) 92 07/16/17 06:07 66 11 93/65 (74) 92 07/16/17 06:00 73 07/16/17 05:07 74 10 114/76 (89) 92 07/16/17 04:07 97.4 60 15 91/66 (74) 94 07/16/17 04:00 92 Nasal Cannula 30.00 35 07/16/17 04:00 75 07/16/17 03:07 66 22 92/63 (73) 91 07/16/17 02:07 74 15 94/67 (76) 92 07/16/17 02:00 78 07/16/17 01:15 95 High Flow Nasal Cannula 30.00 32 07/16/17 01:15 92 Nasal Cannula 30.00 35 07/16/17 01:07 72 24 97/69 (78) 93 07/16/17 00:09 66 18 92/59 (70) 94 07/16/17 00:07 64 14 87/62 (70) 93 07/16/17 00:00 97.8 64 11 92/59 (70) 94 07/16/17 00:00 62 07/15/17 23:07 68 14 93/67 (76) 95 07/15/17 22:10 94 Bi-Pap 35 07/15/17 22:10 100 35 07/15/17 22:07 70 24 96/72 (80) 94 07/15/17 22:00 68 07/15/17 21:09 74 27 93/62 (72) 95 07/15/17 21:07 76 20 86/62 (70) 95 07/15/17 20:07 97.7 78 18 94/66 (75) 90 07/15/17 20:00 92 High Flow Nasal Cannula 30.00 32 07/15/17 20:00 92 Nasal Cannula 30.00 35 07/15/17 20:00 78 07/15/17 19:07 82 24 105/73 (84) 92 07/15/17 18:00 88 07/15/17 17:00 76 17 98/70 (79) 90 07/15/17 17:00 76 07/15/17 16:00 84 07/15/17 16:00 96.6 80 15 108/72 (84) 89 07/15/17 15:00 84 14 100/73 (82) 89 07/15/17 14:30 95 High Flow Nasal Cannula 30.00 32 07/15/17 14:16 96.6 87 18 101/68 (79) 95 I/O 07/15/17 07/15/17 07/15/17 07/16/17 07/16/17 07/16/17 07:00 15:00 23:00 07:00 15:00 23:00 Intake Total 2621 ml 236 ml 1250 ml 1380 ml 220 ml Output Total 400 ml 400 ml Balance 2621 ml 236 ml 850 ml 1380 ml -180 ml Intake Oral 236 ml 250 ml 220 ml IV Total 2621 ml 1000 ml 1380 ml Output Urine Total 400 ml 400 ml # Voids 2 1 2 # Bowel Movements 0 0 Result Diagram: 07/16/17 0418 07/16/17 [address] Angiography 07/15/17 0024 Signed Impressions: Service Date/Time: Saturday, July 15, 2017 00:17 - CONCLUSION: 1. No pulmonary embolus. 2. Bilateral pneumonia and tiny left pleural effusion. 3. Upper limits of normal mediastinal lymph nodes. Sonu Diaz MD Chest X-Ray 07/14/17 [id number] Signed Impressions: Service Date/Time: Friday, July 14, 2017 23:03 - CONCLUSION: Patchy bilateral pneumonia as above. Sonu Diaz MD Objective Remarks GENERAL: This is a well-nourished, well-developed patient, in no apparent distress. CARDIOVASCULAR: Regular rate and rhythm without murmurs, gallops, or rubs. RESPIRATORY: Bilateral rhonchi with improved airflow GASTROINTESTINAL: Abdomen soft, non-tender, nondistended. Normal active bowel sounds MUSCULOSKELETAL: Extremities without clubbing, cyanosis, or edema. NEURO: Alert & Oriented x4 to person, place, time, situation. Moves all ext x4 A/P Problem List: (1) Encephalopathy ICD Code: G93.40 - Encephalopathy, unspecified Plan: Likely secondary to hypercapnia/metabolic encephalopathy Greatly improved with treatment of pulmonary processes (2) PNA (pneumonia) ICD Code: J18.9 - Pneumonia, unspecified organism Status: Acute Plan: Continue with empiric Levaquin, follow-up micro Patient with acute sepsis (elevated heart rate, elevated white cell count Pneumonia) (3) Sepsis ICD Code: A41.9 - Sepsis, unspecified organism Status: Acute Plan: Likely due to pneumonia Elevated white cell count and hypoxemia and tachycardia (4) Rhabdomyolysis ICD Code: M62.82 - Rhabdomyolysis Plan: Continue with trending CPK levels, IV fluids and watch renal function (5) SOB (shortness of breath) ICD Code: R06.02 - Shortness of breath Plan: Continue with nebulizers as needed Acidosis improved Rule out chronic disease process Patient also with acute pneumonia will continue IV antibiotics we will continue short course of steroids wean off o2 as tolerated Problem Qualifiers (1) PNA (pneumonia): Qualified Codes: J18.9 - Pneumonia, unspecified organism (2) Sepsis: Qualified Codes: A41.9 - Sepsis, unspecified organism Lisa Parker MD Jul 16, 2017 13:17
[2017-07-16] MEDS: ENOXAPARIN SODIUM 40 MG/0.4 ML SYRINGE SQ SCH (15:12)
[2017-07-16] MEDS: DIAZEPAM 5 MG TAB PO PRN (20:28)
[2017-07-17] VITALS (30 sets, daily range): BP systolic 120–152; BP diastolic 74–99; PULSE 58–94; RESP 11–28; TEMP 97.9–98.8; O2SAT 89–98
[2017-07-17] MEDS: SODIUM CHLOR 0.9% 1000 ML INJ 1,000 ML IV SCH ×2 (00:42→10:11)
[2017-07-17] MEDS: ACETAMINOPHEN/HYDROcodone 325 MG/5 MG TAB PO PRN ×5 (02:15→20:48)
[2017-07-17] MEDS: methylPREDNISolone SOD SUCC 40 MG/1 ML VIAL IV PUSH SCH ×4 (05:49→22:46)
[2017-07-17] MEDS: DOCUSATE SODIUM 50 MG/SENNA 8.6 MG TAB PO SCH ×2 (09:00→20:47)
[2017-07-17] MEDS: guaiFENesin E.R. 600 MG TAB PO SCH ×2 (10:09→20:48)
[2017-07-17] MEDS: QUEtiapine FUMARATE 25 MG TAB PO SCH (10:09)
[2017-07-17] MEDS: CITALOPRAM HYDROBROMIDE 20 MG TAB PO SCH (10:10)
[2017-07-17] MEDS: NICOTINE 14 MG/24 HR PATCH T-DERMAL SCH (10:10)
[2017-07-17] MEDS: LEVOFLOXACIN 750 MG TAB PO SCH (10:10)
[2017-07-17] MEDS: REMOVE OLD PATCH T-DERMAL SCH (10:10)
[2017-07-17] MEDS: SODIUM CHLORIDE 0.9% FLUSH 10 ML FLUSH IV FLUSH SCH ×2 (10:11→20:48)
[2017-07-17] MEDS ORDERED: PRED20 PO (12:14)
[2017-07-17] MEDS ORDERED: LEVA750T9 PO (12:14)
[2017-07-17] MEDS ORDERED: NEBULIZER1 MI1 (12:14)
[2017-07-17] MEDS ORDERED: FUROSEMIDE 40 MG/4 ML VIAL IV PUSH ONE (12:15)
--- NOTE | 2017-07-17 12:19 | HHI.PR ---
Subjective Remarks Patient seen and evaluated in follow-up for respiratory failure with pneumonia and significant hypoxemia Objective Vitals Vital Signs Date Time Temp Pulse Resp B/P (MAP) Pulse Ox O2 Delivery O2 Flow Rate FiO2 07/17/17 11:01 62 12 126/82 (97) 93 07/17/17 10:01 94 28 146/85 (105) 91 07/17/17 10:00 94 Nasal Cannula 2.00 07/17/17 09:01 68 15 138/87 (104) 93 07/17/17 08:01 64 17 129/76 (93) 94 07/17/17 08:00 94 Nasal Cannula 2.00 07/17/17 07:21 95 Nasal Cannula 2.00 07/17/17 07:01 98.1 68 18 137/89 (105) 95 07/17/17 06:03 70 07/17/17 06:01 78 24 134/85 (101) 95 07/17/17 05:01 76 11 128/89 (102) 95 07/17/17 04:01 98.2 62 11 132/88 (103) 95 07/17/17 04:00 65 07/17/17 04:00 95 Nasal Cannula 2.00 07/17/17 03:45 95 Nasal Cannula 4.00 07/17/17 03:45 96 Nasal Cannula 2.00 07/17/17 03:01 62 11 142/89 (106) 98 07/17/17 02:01 66 15 124/89 (101) 96 07/17/17 02:00 66 07/17/17 01:01 58 12 134/81 (98) 94 07/17/17 00:17 98.0 72 20 120/78 (92) 96 07/17/17 00:00 70 07/16/17 23:15 74 25 141/71 (94) 96 07/16/17 22:15 70 17 107/77 (87) 95 07/16/17 22:00 74 07/16/17 21:38 80 22 115/79 (91) 93 07/16/17 20:15 97.8 74 20 119/84 (96) 100 07/16/17 20:09 96 High Flow Nasal Cannula 25.00 35 07/16/17 20:00 75 07/16/17 19:15 70 10 119/79 (92) 95 07/16/17 19:00 95 Nasal Cannula 25.00 35 07/16/17 18:00 80 13 106/70 (82) 95 07/16/17 18:00 80 07/16/17 17:00 80 12 113/61 (78) 91 07/16/17 16:00 98.2 78 12 101/63 (76) 90 07/16/17 16:00 78 07/16/17 15:34 95 High Flow Nasal Cannula 25.00 34 07/16/17 15:00 70 12 107/79 (88) 91 07/16/17 14:00 80 07/16/17 14:00 78 12 96/62 (73) 90 07/16/17 13:00 74 11 96/65 (75) 91 I/O 07/16/17 07/16/17 07/16/17 07/17/17 07/17/17 07/17/17 07:00 15:00 23:00 07:00 15:00 23:00 Intake Total 1380 ml 840 ml 960 ml 420 ml Output Total 400 ml 350 ml 450 ml Balance 1380 ml 440 ml 610 ml -30 ml Intake Oral 220 ml 960 ml 420 ml IV Total 1380 ml 620 ml Output Urine Total 400 ml 350 ml 450 ml # Voids 2 2 # Bowel Movements 0 0 0 Result Diagram: 07/16/17 0418 07/16/17 [address] Angiography 07/15/17 0024 Signed Impressions: Service Date/Time: Saturday, July 15, 2017 00:17 - CONCLUSION: 1. No pulmonary embolus. 2. Bilateral pneumonia and tiny left pleural effusion. 3. Upper limits of normal mediastinal lymph nodes. Sonu Diaz MD Chest X-Ray 07/14/17 [id number] Signed Impressions: Service Date/Time: Friday, July 14, 2017 23:03 - CONCLUSION: Patchy bilateral pneumonia as above. Sonu Diaz MD Objective Remarks GENERAL: This is a well-nourished, well-developed patient, in no apparent distress. CARDIOVASCULAR: Regular rate and rhythm without murmurs, gallops, or rubs. RESPIRATORY: Bilateral rhonchi with improved airflow GASTROINTESTINAL: Abdomen soft, non-tender, nondistended. Normal active bowel sounds MUSCULOSKELETAL: Extremities without clubbing, cyanosis, or edema. NEURO: Alert & Oriented x4 to person, place, time, situation. Moves all ext x4 A/P Problem List: (1) Encephalopathy ICD Code: G93.40 - Encephalopathy, unspecified Plan: Secondary to hypercapnic encephalopathy Resolved (2) PNA (pneumonia) ICD Code: J18.9 - Pneumonia, unspecified organism Status: Acute Plan: Continue with empiric Levaquin, follow-up micro Patient with acute sepsis (elevated heart rate, elevated white cell count Pneumonia) (3) Sepsis ICD Code: A41.9 - Sepsis, unspecified organism Status: Acute Plan: Likely due to pneumonia Resolved (4) Rhabdomyolysis ICD Code: M62.82 - Rhabdomyolysis Plan: improved (5) SOB (shortness of breath) ICD Code: R06.02 - Shortness of breath Plan: Overall improved with treatment with bronchodilators, IV steroids, oxygen and antibiotics. She will need further testing once stabilized In the meantime continue with nebulizer at home, short course of steroids patient does have COPD Or emphysema of some sort Discharge Planning Discharge home Activity unrestricted Diet regular Problem Qualifiers (1) PNA (pneumonia): Qualified Codes: J18.9 - Pneumonia, unspecified organism (2) Sepsis: Qualified Codes: A41.9 - Sepsis, unspecified organism Lisa Parker MD Jul 17, 2017 12:19
--- NOTE | 2017-07-17 12:21 | HHI.DCPOC ---
Discharge Care Plan Diagnosis: (1) Respiratory failure with hypoxia and hypercapnia (2) Bronchitis (3) PNA (pneumonia) Goals to Promote Your Health * To prevent worsening of your condition and complications * To maintain your health at the optimal level Directions to Meet Your Goals Take your medications as prescribed Follow your dietary instruction Follow activity as directed Keep your appointments as scheduled Take your immunizations and boosters as scheduled If your symptoms worsen call your PCP, if no PCP go to Urgent Care Center or Emergency Room Smoking is Dangerous to Your Health. Avoid second hand smoke Call the 24-hour hour crisis hotline for domestic abuse at Lisa Parker MD Jul 17, 2017 12:21
[2017-07-17] MEDS: ENOXAPARIN SODIUM 40 MG/0.4 ML SYRINGE SQ SCH (12:55)
[2017-07-17] MEDS: RESP: ALBUTEROL 2.5 MG/IPRATROPIUM 0.5 MG NEB (PRN) NEB ×2 (14:04→19:56)
[2017-07-17] MEDS: SODIUM CHLORIDE 0.9% FLUSH 10 ML FLUSH IV FLUSH PRN (22:46)
[2017-07-17] MEDS: DIAZEPAM 5 MG TAB PO PRN (22:46)
[2017-07-18] VITALS (19 sets, daily range): BP systolic 116–170; BP diastolic 78–101; PULSE 56–78; RESP 8–28; TEMP 97.9–98; O2SAT 87–96
[2017-07-18] MEDS: methylPREDNISolone SOD SUCC 40 MG/1 ML VIAL IV PUSH SCH ×3 (04:51→16:06)
[2017-07-18] MEDS: SODIUM CHLORIDE 0.9% FLUSH 10 ML FLUSH IV FLUSH PRN (04:51)
[2017-07-18] MEDS: ACETAMINOPHEN/HYDROcodone 325 MG/5 MG TAB PO PRN ×3 (04:59→12:37)
[2017-07-18] MEDS: LEVOFLOXACIN 750 MG TAB PO SCH (08:29)
[2017-07-18] MEDS: CITALOPRAM HYDROBROMIDE 20 MG TAB PO SCH (08:29)
[2017-07-18] MEDS: QUEtiapine FUMARATE 25 MG TAB PO SCH (08:29)
[2017-07-18] MEDS: guaiFENesin E.R. 600 MG TAB PO SCH (08:29)
[2017-07-18] MEDS: NICOTINE 14 MG/24 HR PATCH T-DERMAL SCH (08:30)
[2017-07-18] MEDS: REMOVE OLD PATCH T-DERMAL SCH (08:30)
[2017-07-18] MEDS: DOCUSATE SODIUM 50 MG/SENNA 8.6 MG TAB PO SCH (08:30)
[2017-07-18] MEDS: SODIUM CHLORIDE 0.9% FLUSH 10 ML FLUSH IV FLUSH SCH (08:30)
[2017-07-18] MEDS: RESP: ALBUTEROL 2.5 MG/IPRATROPIUM 0.5 MG NEB (PRN) NEB (08:45)
[2017-07-18] MEDS ORDERED: OXYGENDME NAS.CANULA (10:32)
[2017-07-18] MEDS ORDERED: guaiFENesin/CODEINE SYRUP 200 MG/20 MG/10 ML CUP PO PRN (11:30)
--- NOTE | 2017-07-18 11:45 | HHI.DS ---
Discharge Summary Admission Date Jul 15, 2017 at 01:03 Discharge Date: Jul 18, 2017 Admitting Diagnosis PNA; Sepsis; UTI (1) Encephalopathy ICD Code: G93.40 - Encephalopathy, unspecified (2) PNA (pneumonia) ICD Code: J18.9 - Pneumonia, unspecified organism Status: Acute (3) Sepsis ICD Code: A41.9 - Sepsis, unspecified organism Status: Acute (4) Rhabdomyolysis ICD Code: M62.82 - Rhabdomyolysis (5) SOB (shortness of breath) ICD Code: R06.02 - Shortness of breath Procedures NONE Brief History - From Admission This patient is a 57-year-old female with a history of tobacco dependency without a history of chronic obstructive disease per her report and who comes in with increased headache and shortness of breath for the last several days. She reports she was recently in a hospital however no reports are verified. She has had difficulty breathing and productive cough and does came to the hospital for further evaluation. In the emergency room she was tachycardic and had elevated white cell count. X-ray on my review does show patchy infiltrates bilaterally and a CT of the chest is consistent with bilateral pneumonia. Patient been admitted to the hospital for acute bilateral pneumonia with evidence of respiratory failure. She has been hypoxemic without home oxygen reported. She has been on 3-4 L here. She has some improvement nebulizers and antibiotics. She feels a tightness in her chest is improved and her headache is improved as well. Patient been admitted to the hospital for further evaluation and treatment of the above problems. CBC/BMP: 07/16/17 0418 07/16/17 0418 Significant Findings Laboratory Tests Test 07/15/17 21:30 07/16/17 04:18 07/17/17 04:53 07/17/17 05:53 Blood Gas HCO3 29 mmol/L (22-26) Blood Gas Base Excess 2.8 mmol/L (-2-2) Arterial Blood pH 7.31 (7.380-7.420) Arterial Blood Partial Pressure CO2 58 mmHg (38-42) 43 mmHg (38-42) Blood Gas Hemoglobin 9.7 G/DL (12.0-16.0) 10.0 G/DL (12.0-16.0) Red Blood Count 3.28 MIL/MM3 (4.00-5.30) Hemoglobin 10.1 GM/DL (11.6-15.3) Hematocrit 31.0 % (35.0-46.0) Neutrophils (%) (Auto) 91.6 % (16.0-70.0) Lymphocytes (%) (Auto) 6.5 % (9.0-44.0) Neutrophils # (Auto) 9.0 TH/MM3 (1.8-7.7) Lymphocytes # (Auto) 0.6 TH/MM3 (1.0-4.8) Creatinine 0.45 MG/DL (0.50-1.00) Random Glucose 132 MG/DL (74-106) Albumin 2.2 GM/DL (3.4-5.0) Calcium Level 8.2 MG/DL (8.5-10.1) Aspartate Amino Transf (AST/SGOT) 67 U/L (15-37) Alanine Aminotransferase (ALT/SGPT) 56 U/L (10-53) Total Creatine Kinase 340 U/L (26-192) Imaging Last Impressions CT Angiography 07/15/17 0024 Signed Impressions: Service Date/Time: Saturday, July 15, 2017 00:17 - CONCLUSION: 1. No pulmonary embolus. 2. Bilateral pneumonia and tiny left pleural effusion. 3. Upper limits of normal mediastinal lymph nodes. Sonu Diaz MD Chest X-Ray 07/14/17 0661 Signed Impressions: Service Date/Time: Friday, July 14, 2017 23:03 - CONCLUSION: Patchy bilateral pneumonia as above. Sonu Diaz MD PE at Discharge GENERAL: This is a well-nourished, well-developed patient, in no apparent distress. CARDIOVASCULAR: Regular rate and rhythm without murmurs, gallops, or rubs. RESPIRATORY: Bilateral rhonchi with improved airflow GASTROINTESTINAL: Abdomen soft, non-tender, nondistended. Normal active bowel sounds MUSCULOSKELETAL: Extremities without clubbing, cyanosis, or edema. NEURO: Alert & Oriented x4 to person, place, time, situation. Moves all ext x4 Pt update on day of discharge Patient seen and evaluated in follow-up for acute bronchitis and acute pneumonia with hypoxemia. Patient has done well overnight. Still hypoxemic. Discharge plan discussed with patient and nursing ICU team. Hospital Course Patient is a 57-year-old female came to the hospital with altered mental status , hypercapnic encephalopathy and pneumonia. Patient was treated with high flow nasal cannula oxygen, bronchodilators by nebulizer, IV steroids and antibiotics. She did well. She was found to be continuously hypoxemic and required oxygen at discharge. Pt Condition on Discharge: Good Discharge Disposition: Discharge Home Discharge Time: > 30 minutes Discharge Instructions DIET: Follow Instructions for: As Tolerated, No Restrictions Activities you can perform: Regular-No Restrictions Follow up Referrals: PCP Follow-up - 1 Week New Medications: Nebulizer (Nebulizer) 1 Mis Mis EA .XX DIRECTED for Breathing Treatment, #1 0 Refills Oxygen (O2) (Oxygen (O2)) Device LITER BLANCO.CANULA CONTINUOUS for Prevent Hypoxemia, #2 Oxygen Concentrator Portable Gaseous 2 L/min via Nasal Canula Continuous For 99 months Prednisone (Prednisone) 20 Mg Tab 20 MG PO DIRECTED for Inflammation, #15 TAB 0 Refills 40 MG twice a day x 3 days, then 20 MG daily x 3 days, then 10 MG daily x 3 days Levofloxacin (Levaquin) 750 Mg Tablet 750 MG PO DAILY for Infection, #5 TAB Continued Medications: Citalopram (Citalopram) 20 Mg Tab 20 MG PO DAILY for Control Depression, #30 TAB 0 Refills Diazepam (Diazepam) 10 Mg Tab 10 MG PO HS PRN for MILD ANXIETY, TAB 0 Refills Doxepin (Doxepin) 100 Mg Cap 100 MG PO HS, #30 CAP 0 Refills Gabapentin (Gabapentin) 300 Mg Cap 300 MG PO BID, #60 CAP 0 Refills Hydrochlorothiazide (Hydrochlorothiazide) 25 Mg Tab 25 MG PO DAILY, #30 TAB 0 Refills Hydroxyzine Pamoate (Hydroxyzine Pamoate) 25 Mg Cap 25 MG PO BID PRN for ANXIETY, CAP 0 Refills Lorazepam (Lorazepam) 0.5 Mg Tab 0.5 MG PO TID for ANXIETY AND/OR INSOMNIA, TAB 0 Refills Metoprolol Tartrate (Metoprolol Tartrate) 100 Mg Tab 150 MG PO DAILY, #30 TAB 0 Refills Quetiapine (Seroquel) 50 Mg Tab 50 MG PO HS, #30 TAB 0 Refills Quetiapine ER (Quetiapine ER) 50 Mg Tab 25 MG PO DAILY for Anxiety, #30 TAB 0 Refills Lisa Parker MD Jul 18, 2017 11:45
[2017-07-18] MEDS: ENOXAPARIN SODIUM 40 MG/0.4 ML SYRINGE SQ SCH (12:37)
[2017-07-18] MEDS ORDERED: Albuterol-Ipratropium Neb NEB (17:18)
== END 2017-07-18 18:14 | disposition home or self-care (01) | DRG 871 ==
LOC: PHED 20:08 → PHEDA 07-15 01:03 → PH3A 07-15 01:57 → PHICU 07-15 13:50
PROVIDERS: ADMIT Hospitalist; ATTEND Hospitalist
DX: A41.9 Sepsis, unspecified organism (principal); G93.49 Other encephalopathy; J96.91 Respiratory failure, unspecified with hypoxia; J96.92 Respiratory failure, unspecified with hypercapnia; M62.82 Rhabdomyolysis; J44.0 Chronic obstructive pulmonary disease with (acute) lower respiratory infection; N39.0 Urinary tract infection, site not specified; F41.9 Anxiety disorder, unspecified; J20.9 Acute bronchitis, unspecified; F32.9 Major depressive disorder, single episode, unspecified; I10 Essential (primary) hypertension; Z72.0 Tobacco use; Z88.0 Allergy status to penicillin
CPT/HCPCS: 36600; 71045; 71275; 80053; 81001; 82140; 82550; 82552; 82805; 83880; 84484; 85007; 85025; 85027; 85379; 85610; 85730; 87040; 87070; 87205; 87804; 93005; 94003; 94150; 94618; 94640; 94664; 94667; 94668; 96365; 96375; J0456; J0696; J1650; J1940; J2270; J2920; J2930; J7030; J7050; J7613; Q9967